=== PATIENT | male | born 2000 | race Two or more races ===

== ENCOUNTER 2022-07-07 00:55 | Emergency (ER) | payer SELFPAY ==
[~2022-07-07] VITALS: Ht 180.3 cm; Wt 100.0 kg
[2022-07-07 00:59] VITALS: BP 157/91
== END 2022-07-07 01:30 | disposition left against medical advice (07) ==
LOC: EMS 00:56
DX: Z53.21 Procedure and treatment not carried out due to patient leaving prior to being seen by health care provider (principal)
CPT/HCPCS: 93005